=== PATIENT | female | born 1965 | race Caucasian/White ===

== ENCOUNTER 2017-09-09 18:47 | Emergency (ER) | payer OTHER ==
[~2017-09-09] VITALS: Ht 160 cm; Wt 61.2 kg
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
[2017-09-09] MEDS ORDERED: ONDA8TAB6 PO (19:34)
[2017-09-09] MEDS ORDERED: BACI3.5O23 OP (19:34)
[2017-09-09] MEDS ORDERED: ACYC5CRE2 TP (19:34)
[2017-09-09] MEDS ORDERED: TRAM50TA2 PO (19:34)
[2017-09-09] MEDS ORDERED: CETI10TA14 PO (19:34)
[2017-09-09] MEDS ORDERED: HYDR200T PO (19:34)
[2017-09-09] MEDS ORDERED: SULF500T PO (19:34)
[2017-09-09] MEDS ORDERED: PRED-170 PO (19:34)
[2017-09-09] MEDS ORDERED: FOLI1TAB16 PO (19:34)
[2017-09-09] MEDS ORDERED: CALC500T3 PO (19:34)
[2017-09-09] MEDS ORDERED: PANT40TA2 PO (19:34)
[2017-09-09] MEDS ORDERED: CHOL50004 PO (19:34)
[2017-09-09] MEDS ORDERED: GABA-534 PO (19:34)
[2017-09-09] MEDS ORDERED: ALBU18HF2 IH (19:34)
[2017-09-09] MEDS ORDERED: APIX2.5T PO (19:34)
[2017-09-09 19:40] VITALS: BP 117/69
--- NOTE | 2017-09-09 19:41 | NUR ---
Patient discharged to home in stable conditon. Written and verbal after care instructions given. Patient verbalizes understanding of instructions. ambulates from ER uneventfully - calm without distress - with all belongings -
== END 2017-09-09 19:42 | disposition home or self-care (01) ==
LOC: ER 18:48
DX: S00.83XA Contusion of other part of head, initial encounter (principal); K21.9 Gastro-esophageal reflux disease without esophagitis; Z79.01 Long term (current) use of anticoagulants; Z88.0 Allergy status to penicillin; Z88.5 Allergy status to narcotic agent; W22.8XXA Striking against or struck by other objects, initial encounter; Y93.89 Activity, other specified; Y92.89 Other specified places as the place of occurrence of the external cause; Y99.8 Other external cause status
CPT/HCPCS: 99281; A4663

== ENCOUNTER 2024-09-22 14:07 | Emergency (ER) | payer OTHER ==
[~2024-09-22] VITALS: Ht 160 cm; Wt 65.8 kg
[~2024-09-22 14:07] MED LIST: ACYC5CRE2 TP; ALBU18HF2 IH; APIX2.5T PO; BACI3.5O23 OP; CALC500T88 PO; CETI10TA14 PO; CHOL50004 PO; FOLI1TAB94 PO; GABA-534 PO; HYDR200T81 PO; ONDA8TAB6 PO; PANT40TA2 PO; PRED-170 PO; SULF500T PO; TRAM50TA2 PO
[2024-09-22 15:21] LABS: BASOPHILS % (AUTO) 0.8 % (0.0-2.0); EOSINOPHILS # (AUTO) 0.1 K/uL (0.0-0.7); EOSINOPHILS % (AUTO) 1.4 % (0.0-7.0); HEMATOCRIT 35.4 % (31.2-41.9); HEMOGLOBIN 11.7 g/dL (10.9-14.3); LYMPHOCYTES # (AUTO) 0.4 K/uL (0.8-4.8); LYMPHOCYTES % (AUTO) 7.5 % (20.5-51.5); MEAN CORPUSCULAR HEMOGLOBIN 27.7 uug (24.7-32.8); MEAN CORPUSCULAR HGB CONC 33 g/dL (32.3-35.6); MEAN CORPUSCULAR VOLUME 83.9 fL (75.5-95.3); MONOCYTES # (AUTO) 0.4 K/uL (0.1-1.30); MONOCYTES % (AUTO) 7.6 % (0.0-11.0); NEUTROPHILS # (AUTO) 4.7 K/uL (1.8-8.9); NEUTROPHILS % (AUTO) 82.7 % (38.5-71.5); PLATELET COUNT (AUTO) 198 K/uL (179-408); RED BLOOD CELL COUNT(AUTO) 4.22 MIL/uL (3.63-4.92); RED CELL DISTRIBUTION WIDTH 15.5 % (12.3-17.7); WHITE BLOOD COUNT (AUTO) 5.6 K/uL (3.8-11.8)
[2024-09-22 15:32] LABS: CALCIUM 8.7 mg/dL (8.5-10.1); POTASSIUM 3.8 mmol/L (3.5-5.1)
[2024-09-22 15:41] LABS: DIFFERENTIAL COMMENT 1
[2024-09-22 16:03] LABS: ALBUMIN 3.3 g/dL (3.4-5.0); BILIRUBIN,TOTAL 0.4 mg/dL (0.2-1.0); TOTAL PROTEIN, SERUM 6.9 g/dL (6.4-8.2)
[2024-09-22] MEDS ORDERED: METR500T PO (18:41)
[2024-09-22] MEDS ORDERED: FLUT16SP16 BNOSTRILS (18:41)
[2024-09-22] MEDS ORDERED: OXYM15MI4 NS (18:41)
[2024-09-22] MEDS ORDERED: SULF1TAB48 PO (18:41)
[2024-09-22] MEDS ORDERED: PSEU-249 PO (18:41)
[2024-09-22 18:53] VITALS: BP 133/71; O2SAT 98
== END 2024-09-22 18:57 | disposition home or self-care (01) ==
LOC: ER 14:07
DX: J32.9 Chronic sinusitis, unspecified (principal); K21.9 Gastro-esophageal reflux disease without esophagitis; M79.7 Fibromyalgia; Z79.01 Long term (current) use of anticoagulants; Z79.52 Long term (current) use of systemic steroids; Z79.899 Other long term (current) drug therapy; Z88.0 Allergy status to penicillin; Z88.5 Allergy status to narcotic agent; Z88.6 Allergy status to analgesic agent; Z88.7 Allergy status to serum and vaccine
CPT/HCPCS: 36415; 71045; 83735; 85025; A4606; A4663